=== PATIENT | male | born 1960 | race Caucasian/White ===

== ENCOUNTER 2017-02-26 08:57 | Day surgery (SDC) | payer BC ==
[~2017-02-26 08:57] MED LIST: CPAP; ELIQUIS5 M1 PO; LASIX40 M1 PO; NORVASC10 M2 PO; POTASSIUM CHLO10 ME2 PO; PRINIVIL20 M1 PO; TIKOSYN250 MCG PO; TOPROL XL50 M1 PO
[2017-02-26 10:25] LABS: BASO % 0.1 % (0-2); EOS % 0.1 % (0-7); HCT-HEMATOCRIT 37.2 % (36.0-53.5); HGB-HEMOGLOBIN 12.7 gm/dl (13.5-17.0); IMMATURE GRANULOCYTES ABSOLUTE 0.04 tho/cmm (0-0.03); IMMATURE GRANULOCYTES PERCENT 0.1 % (0-0.3); MCH (MEAN CORPUSCULAR HGB) 33.7 pg (28.0-32.0); MCHC MEAN CORPUSCULAR HGB CONC 34.1 % (32.0-36.0); MCV (MEAN CELL VOLUME) 98.7 fl (82.0-96.0); MEAN PLATELET VOLUME 10.1 cmc (9.4-12.4); MONO % 0.7 % (0-12); PLATELET COUNT 114 tho/cmm (150-450); RED BLOOD COUNT 3.77 mil/cmm (4.40-5.70)
[2017-02-26 10:28] LABS: BASO ABSOLUTE COUNT 0.1 tho/cmm (0.0-0.2); LYMPH ABSOLUTE COUNT 36.9 tho/cmm (0.8-4.5); MONOCYTE ABSOLUTE COUNT 0.3 tho/cmm (0.0-1.2); WHITE BLOOD COUNT 39.2 tho/cmm (4.0-10.0)
[2017-02-26 11:04] LABS: PROTHROMBIN TIME 11.9 SECONDS (9.0-13.6)
[2017-02-26 11:24] LABS: WBC MORPHOLOGY VARIANT LYMPHS
[2017-02-26 11:59] LABS: PROCALCITONIN 0.06 ng/ml (0.05-0.09)
== END 2017-02-26 14:50 ==
LOC: SHSC 08:57
PROVIDERS: Radiology Diagnostic Radiology
PROC: 0TB03ZX Excision of Right Kidney, Percutaneous Approach, Diagnostic (ICD-10-PCS; principal; 2017-02-26)
DX: C64.1 Malignant neoplasm of right kidney, except renal pelvis (principal); I10 Essential (primary) hypertension; E78.5 Hyperlipidemia, unspecified; I48.91 Unspecified atrial fibrillation; Z79.01 Long term (current) use of anticoagulants; Z79.899 Other long term (current) drug therapy; Z85.72 Personal history of non-Hodgkin lymphomas; Z90.89 Acquired absence of other organs; Z98.890 Other specified postprocedural states
CPT/HCPCS: J2250; J3010; J7030